=== PATIENT | female | born 1945 | race Caucasian/White ===

== ENCOUNTER 2017-12-12 18:04 | Emergency (ER) | payer OTHER ==
[~2017-12-12] VITALS: Ht 160 cm; Wt 59.4 kg
[~2017-12-12 18:04] MED LIST: ACET120S; NAPR250; THYR60
[2017-12-12 19:36] LABS: Influenza A Negative (NEGATIVE); Influenza B Negative (NEGATIVE)
[2017-12-12] MEDS ORDERED: Calcitonin-Sal3.7 ML (19:36)
[2017-12-12] MEDS ORDERED: Pseudoephedrine30 MG PO (20:11)
[2017-12-12] MEDS ORDERED: Mucinex600 MG PO (20:11)
[2017-12-12] MEDS ORDERED: BENZ100A PO (20:11)
== END 2017-12-12 20:29 | disposition home or self-care (01) ==
LOC: ER 18:04
PROVIDERS: Physician Assistant
DX: J40 Bronchitis, not specified as acute or chronic (principal); J06.9 Acute upper respiratory infection, unspecified; Z88.2 Allergy status to sulfonamides; Z79.899 Other long term (current) drug therapy; Z87.891 Personal history of nicotine dependence
CPT/HCPCS: 71046; 87804; 99284

== ENCOUNTER → 2018-02-11 | Outpatient (CLI) | payer OTHER ==
[~2018-02-11] MED LIST changes: +BENZ100A PO; +Calcitonin-Sal3.7 ML; +Mucinex600 MG PO; +Pseudoephedrine30 MG PO
== END | disposition home or self-care (01) ==
LOC: OLS 08:30
DX: K52.1 Toxic gastroenteritis and colitis (principal)
CPT/HCPCS: 87493

== ENCOUNTER 2022-07-24 08:20 | Day surgery (SDC) | payer OTHER ==
[~2022-07-24] VITALS: Ht 162.6 cm; Wt 55.9 kg
[~2022-07-24 08:20] MED LIST changes: +ARMOUR THYROID90 M2 PO
[2022-07-24] MEDS ORDERED: MULVITA (09:02)
[2022-07-24] MEDS ORDERED: Vitamin D1000 UNI1 (09:02)
[2022-07-24] MEDS ORDERED: B COMPLEX FORM0.4 MG (09:02)
[2022-07-24] MEDS ORDERED: C COMPLEX1000 M1 (09:02)
[2022-07-24] MEDS ORDERED: CALCIUM CARBON500 M1 (09:02)
[2022-07-24] MEDS ORDERED: SELENIOUS40 MCG/1 M (09:03)
--- NOTE | 2022-07-24 09:19 | NUR ---
07/24/22 0919 JOSÉ MIGUEL FARFAN TWO ATTEMPTS AT IV. FIRST ATTEMPT IN R WRIST BY MA INFILTRATED. SECOND ATTEMPT BY MA IN R ANTECUBITAL SUCESSFUL.
== END 2022-07-24 10:55 | disposition home or self-care (01) ==
LOC: ORSCSDS 08:20
PROVIDERS: Internal Medicine Gastroenterology
PROC: 0DBN8ZX Excision of Sigmoid Colon, Via Natural or Artificial Opening Endoscopic, Diagnostic (ICD-10-PCS; principal; 2022-07-24 09:45)
DX: Z12.11 Encounter for screening for malignant neoplasm of colon (principal); Z86.010 Personal history of colon polyps; K62.1 Rectal polyp; K58.2 Mixed irritable bowel syndrome; E03.9 Hypothyroidism, unspecified; Z79.899 Other long term (current) drug therapy; Z87.891 Personal history of nicotine dependence
CPT/HCPCS: 88305; J2704; J7120

== ENCOUNTER → 2023-08-29 | Outpatient (CLI) | payer OTHER ==
[~2023-08-29] MED LIST changes: +ALMACONE SUSPE355 ML PO; +B COMPLEX FORM0.4 MG; +C COMPLEX1000 M1; +CALCIUM CARBON500 M1; +FAMO20 PO; +MULVITA; +SELENIOUS40 MCG/1 M; +Vitamin D1000 UNI1
[2023-08-29 14:40] LABS: BASOPHILS ABSOLUTE AUTO 0.04 K/mm3 (0.00-0.23); BASOPHILS PERCENT AUTO 1 % (0-2); EOSINOPHILS ABSOLUTE AUTO 0.07 K/mm3 (0.00-0.68); EOSINOPHILS PERCENT AUTO 1 % (0-6); Hematocrit 36.7 % (33.0-51.0); Hemoglobin 12.6 g/dL (11.5-16.0); IMMATURE GRAN ABSOLUTE AUTO 0.03 K/mm3 (0.00-0.10); IMMATURE GRAN PERCENT AUTO 0 % (0-1); LYMPHOCYTES ABSOLUTE AUTO 1.44 K/mm3 (0.84-5.20); LYMPHOCYTES PERCENT AUTO 20 % (21-46); MONOCYTES ABSOLUTE AUTO 0.59 K/mm3 (0.16-1.47); MONOCYTES PERCENT AUTO 8 % (4-13); Mean Corpuscular HGB 29.9 pg (26.0-34.0); Mean Corpuscular HGB Conc 34.3 g/dL (31.5-36.5); Mean Corpuscular Volume 87 fL (80-100); Mean Platelet Volume 9.6 fL (9.1-12.4); NEUTROPHILS ABSOLUTE AUTO 5.18 K/mm3 (1.96-9.15); NEUTROPHILS PERCENT AUTO 71 % (41-73); Platelet Count 287 K/mm3 (150-400); RDW Coefficient Variation 13.2 % (11.7-14.2); RDW Standard Deviation 41.9 fL (35.1-46.3); Red Blood Cell Count 4.21 M/mm3 (3.80-5.20); White Blood Cell Count 7.35 K/mm3 (4.00-11.30)
[2023-08-29 14:52] LABS: Albumin, Blood 3.8 g/dL (3.4-5.0); Albumin/Globulin Ratio 1.1 (0.8-1.8); Bilirubin, Total 0.3 mg/dL (0.1-1.0); Bun/Creatinine Ratio 11.1 (12.0-20.0); Calcium, Blood 9.3 mg/dL (8.5-10.1); Creatinine, Blood 0.63 mg/dL (0.40-1.00); Globulin, Blood 3.5 g/dL (2.2-4.0); Potassium, Blood 4.7 mmol/L (3.5-5.5); Total Protein, Blood 7.3 g/dL (6.4-8.2)
[2023-08-29 15:48] LABS: Free Thyroxine 0.87 ng/dL (0.70-1.60); Thyroid Stimulating Hormone 0.755 uIU/mL (0.360-4.800)
== END | disposition home or self-care (01) ==
LOC: LAB 14:37 → LAB SHORT 14:37
PROVIDERS: Physician Assistant
DX: R10.9 Unspecified abdominal pain (principal); E03.9 Hypothyroidism, unspecified
CPT/HCPCS: 80053; 84439; 84443; 84481; 85025

== ENCOUNTER 2023-09-02 00:32 | Emergency (ER) | payer OTHER ==
[~2023-09-02] VITALS: Ht 160 cm; Wt 54.4 kg
[~2023-09-02 00:32] MED LIST changes: -ALMACONE SUSPE355 ML PO; -FAMO20 PO
[2023-09-02 01:13] LABS: BASOPHILS ABSOLUTE AUTO 0.04 K/mm3 (0.00-0.23); BASOPHILS PERCENT AUTO 1 % (0-2); EOSINOPHILS ABSOLUTE AUTO 0.24 K/mm3 (0.00-0.68); EOSINOPHILS PERCENT AUTO 3 % (0-6); Hematocrit 37.1 % (33.0-51.0); Hemoglobin 12.7 g/dL (11.5-16.0); IMMATURE GRAN ABSOLUTE AUTO 0.01 K/mm3 (0.00-0.10); IMMATURE GRAN PERCENT AUTO 0 % (0-1); LYMPHOCYTES ABSOLUTE AUTO 2.06 K/mm3 (0.84-5.20); LYMPHOCYTES PERCENT AUTO 29 % (21-46); MONOCYTES ABSOLUTE AUTO 0.86 K/mm3 (0.16-1.47); MONOCYTES PERCENT AUTO 12 % (4-13); Mean Corpuscular HGB 29.3 pg (26.0-34.0); Mean Corpuscular HGB Conc 34.2 g/dL (31.5-36.5); Mean Corpuscular Volume 86 fL (80-100); Mean Platelet Volume 9.6 fL (9.1-12.4); NEUTROPHILS ABSOLUTE AUTO 3.86 K/mm3 (1.96-9.15); NEUTROPHILS PERCENT AUTO 55 % (41-73); Platelet Count 307 K/mm3 (150-400); RDW Coefficient Variation 13.1 % (11.7-14.2); RDW Standard Deviation 40.7 fL (35.1-46.3); Red Blood Cell Count 4.33 M/mm3 (3.80-5.20); White Blood Cell Count 7.07 K/mm3 (4.00-11.30)
[2023-09-02 01:28] LABS: Albumin, Blood 3.7 g/dL (3.4-5.0); Albumin/Globulin Ratio 1.1 (0.8-1.8); Bilirubin, Total 0.3 mg/dL (0.1-1.0); Bun/Creatinine Ratio 12.7 (12.0-20.0); Creatinine, Blood 0.71 mg/dL (0.40-1.00); Globulin, Blood 3.4 g/dL (2.2-4.0); Potassium, Blood 4.3 mmol/L (3.5-5.5); Total Protein, Blood 7.1 g/dL (6.4-8.2)
[2023-09-02] MEDS ORDERED: FAMO20 PO (04:30)
[2023-09-02] MEDS ORDERED: ALMACONE SUSPE355 ML PO (04:30)
[2023-09-02 04:50] VITALS: BP 134/85
== END 2023-09-02 05:11 | disposition home or self-care (01) ==
LOC: ER 00:32
PROVIDERS: Emergency Medicine
DX: K21.9 Gastro-esophageal reflux disease without esophagitis (principal); Z79.899 Other long term (current) drug therapy; Z88.2 Allergy status to sulfonamides
CPT/HCPCS: 71045; 80053; 83690; 83880; 84484; 85025; 93005; 93010; 96374; 99285-25; A9270

== ENCOUNTER 2025-01-29 16:21 | Emergency (ER) | payer OTHER ==
[~2025-01-29] VITALS: Ht 160 cm; Wt 53.1 kg
[~2025-01-29 16:21] MED LIST changes: +ALMACONE SUSPE355 ML PO; +FAMO20 PO
[2025-01-29 17:33] VITALS: BP 133/76
[2025-01-29] MEDS ORDERED: Acetaminophen 325 MG TABLET PO ONE (20:35)
== END 2025-01-29 21:16 | disposition home or self-care (01) ==
LOC: ER 16:21
DX: S01.01XA Laceration without foreign body of scalp, initial encounter (principal); W18.39XA Other fall on same level, initial encounter; Z88.2 Allergy status to sulfonamides; Z79.890 Hormone replacement therapy; Z79.899 Other long term (current) drug therapy; Z87.891 Personal history of nicotine dependence
CPT/HCPCS: 70450; 99283-25; A9270